=== PATIENT | male | born 1955 | race Caucasian/White ===

== ENCOUNTER 2024-03-08 01:25 | Emergency (ER) | payer OTHER ==
[2024-03-08] MEDS ORDERED: MORPHINE 4 MG/ML SYR ONE ×2 (02:11→02:59)
[2024-03-08] MEDS ORDERED: ONDANSETRON 4 MG/2 ML VIAL ONE ×2 (02:11→02:41)
[2024-03-08] MEDS ORDERED: NA CHLORIDE 0.9% 1,000 ML ONE (02:11)
[2024-03-08] MEDS ORDERED: TAMSULOSIN 0.4 MG SR CAP ONE (02:41)
[2024-03-08 02:53] LABS: Absolute Eosinophils 0.1 K/uL (0-0.5); Absolute Lymphocytes (CBC) 1.5 K/uL (0.7-4.9); Absolute Monocytes 0.6 K/uL (0.1-1.3); Absolute Neutrophil 7.3 K/uL (1.8-8.0); Basophils % 0.5 % (0-1.3); Eosinophils % 1.3 % (0-4.4); Hematocrit 43.2 % (39.6-49.0); Hemoglobin 14.3 g/dL (13.6-17.9); Lymphocytes % 15.7 % (15.3-44.8); MCH 29.4 pg (27.0-35.0); MPV 8.3 fL (7.6-11.3); Monocytes % 6.6 % (3.3-12.3); Neutrophils % 75.9 % (41.7-73.7); Platelets 293 thou/uL (152-406); RBC Red Blood Cell Count 4.86 M/uL (4.33-5.43); Red Cell Distribution Width 14.3 % (12.1-15.2)
[2024-03-08] MEDS ORDERED: KETOROLAC 30 MG/ML INJ ONE (02:59)
[2024-03-08 03:02] LABS: Albumin 4.2 g/dL (3.4-5.0); Albumin/Globulin Ratio 1.3 (1.1-1.8); Anion Gap 9.7 mEq/L (5.0-15.0); Bilirubin Total 0.5 mg/dL (0.2-1.0); Globulin 3.2 g/dL (2.3-3.5); Potassium 3.7 mEq/L (3.5-5.1); Protein, Total 7.4 g/dL (6.4-8.2)
[2024-03-08 04:59] LABS: Renal Epithelial <5 /HPF (None Seen); Sqamous Epithelial None Seen /HPF (None Seen); Urine Bacteria None Seen /HPF (<20); Urine Bilirubin NEGATIVE (Negative); Urine Blood 3+ (OVER) (Negative); Urine Clarity Extremely Turbid (Clear); Urine Color Yellow (Yellow); Urine Culture Reflex Order NOT NEEDED; Urine Glucose NEGATIVE (Negative); Urine Ketones TRACE (Negative); Urine Microscopic Reflex YN ORDER UMIC; Urine Mucus Slight /HPF (None Seen); Urine Nitrite NEGATIVE (Negative); Urine Protein TRACE (Negative); Urine RBC >50 /HPF (None Seen); Urine Urobilinogen Normal (Normal); Urine WBC <5 /HPF (<5); Urine pH 5.5 (5.0-7.0)
--- NOTE | 2024-03-08 05:10 | RAD REPORT ---
EXAM: CT Abdomen and Pelvis Without Intravenous Contrast CLINICAL HISTORY: The patient is 68 years old and is Male; Abdominal pain. TECHNIQUE: Axial computed tomography images of the abdomen and pelvis without intravenous contrast. Sagittal and coronal reformatted images were created and reviewed. This CT exam was performed using one or more of the following dose reduction techniques: automated exposure control, adjustmen t of the mA and/or kV according to patient size, and/or use of iterative reconstruction technique. COMPARISON: CT Abdomen pelvis 12/11/2015. FINDINGS: Lung bases: Unremarkable. No mass. No consolidation. ABDOMEN: Liver: Unremarkable. Gallbladder and bile ducts: Unremarkable. No calcified stones. No ductal dilation. Pancreas: Unremarkable. No ductal dilation. Spleen: Unremarkable. No splenomegaly. Adrenals: Unremarkable. No mass. Kidneys and ureters: Right hydronephrosis and perinephric stranding with a 3.7 mm calculus in the proximal ureter. Punctate right nephrolithiasis. No left hydronephrosis or left nephrolithiasis. Stomach and bowel: No bowel dilatation or obstruction. No bowel wall thickening. PELVIS: Appendix: The visualized appendix is normal. No pericecal inflammation to suggest acute appendici tis. Bladder: Unremarkable. No stones. Reproductive: Mild prostate gland enlargement. Right hydrocele. ABDOMEN and PELVIS: Intraperitoneal space: Unremarkable. No free air. No significant fluid collection. Bones/joints: Degenerative changes in the lower lumbar spine. No acute fracture visualized. No dislocation. Soft tissues: Unremarkable. Vasculature: Unremarkable. No abdominal aortic aneurysm. Lymph nodes: No pathologically enlarged lymph nodes. IMPRESSION: 1. Right hydronephrosis and perinephric stranding with a 3.7 mm calculus in the proximal ureter. 2. Punctate right nephrolithiasis. Electronically signed by: Sheeba Davenport MD 03/08/2024 04:35 AM [facility] [place] Due to temporary technical issues with the [employer] reporting system, reports are being castro d by the in-house radiologist without review as a courtesy to ensure prompt reporting the interpreting radiologist is fully responsible for the content of the report. Transcribed Date/Time: 03/08/2024 5:10 AM
--- NOTE | 2024-03-08 06:22 | ER ---
Nurse's Notes [facility] Name: Zhao Anderson Age: 68 yrs Sex: Male : 1955 Arrival Date: 03/08/2024 Time: 01:25 Bed 8 Private MD: Diagnosis: Acute right ureteral stone, acute kidney stone Presentation: 03/08 01:45 Chief complaint: Patient states: Pain to right lower abdomen and right lower back. vc1 Coronavirus screen: Client denies travel out of the [place] in the last 14 days. At this time, the client does not indicate any symptoms associated with coronavirus-19. Ebola Screen: Patient negative for fever greater than or equal to 101.5 degrees Fahrenheit, and additional compatible Ebola Virus Disease symptoms Patient denies exposure to infectious person. Patient denies travel to an Ebola-affected area in the 21 days before illness onset. No symptoms or risks identified at this time. Initial Sepsis Screen: Does the patient meet any 2 criteria? No. Patient's initial sepsis screen is negative. Does the patient have a suspected source of infection? No. Patient's initial sepsis screen is negative. Risk Assessment: Do you want to hurt yourself or someone else? Patient reports no desire to harm self or others. Note history of kidney stones. Onset of symptoms was March 08, 2024. 01:45 Method Of Arrival: Ambulatory vc1 01:45 Acuity: ALONDRA 3 vc1 Triage Assessment: 01:53 General: Appears in no apparent distress. uncomfortable, Behavior is calm, cooperative, vc1 appropriate for age. Pain: Complains of pain in right low back and right lower quadrant Pain does not radiate. Pain currently is 8 out of 10 on a pain scale. Quality of pain is described as sharp. EENT: No deficits noted. No signs and/or symptoms were reported regarding the EENT system. Neuro: Level of Consciousness is awake, alert, obeys commands, Oriented to person, place, time, situation, Appropriate for age. Respiratory: Airway is patent Respiratory effort is even, unlabored, Respiratory pattern is regular, symmetrical. GI: Reports lower abdominal pain, nausea, vomiting. : Reports inability to void. Derm: Skin is intact, is healthy with good turgor, Skin is dry, Skin is normal, Skin temperature is warm. Musculoskeletal: Circulation, motion, and sensation intact. Range of motion: intact in all extremities. Historical: - Allergies: 01:47 PENICILLINS; vc1 - Home Meds: 01:47 pantoprazole oral every other day [Active]; meloxicam oral [Active]; shot for vc1 cholesterol [Active]; - PMHx: 01:47 Hyperlipidemia; vc1 - PSHx: 01:47 None; vc1 - Immunization history:: Client reports having NOT received the Covid vaccine. - Infectious Disease History:: Denies. - Social history:: Smoking status: Patient denies any tobacco usage or history of. - Family history:: not pertinent. Screenin:53 Abuse screen: Denies threats or abuse. Nutritional screening: No deficits noted. vc1 Tuberculosis screening: No symptoms or risk factors identified. 01:59 [facility] ED Fall Risk Assessment (Adult) History of falling in the last 3 months, bm8 including since admission No falls in past 3 months (0 pts) Confusion or Disorientation No (0 pts) Intoxicated or Sedated No (0 pts) Impaired Gait No (0 pts) Mobility Assist Device Used No (0 pt) Altered Elimination No (0 pt) Score/Fall Risk Level 0 - 2 = Low Risk Oriented to surroundings, Maintained a safe environment, Educated pt \T\ family on fall prevention, incl call for assistance when getting out of bed, Assessed \T\ reinforced patient's understanding of fall precautions, Hourly rounding (assess needs \T\ fall precautionary measures) done, Used ambulatory aids as needed (educated on \T\ assisted with), Used gait belt as appropriate. Assessment: 01:56 Reassessment: Patient and/or family updated on plan of care and expected duration. Pain bm8 level reassessed. Patient is alert, oriented x 3, equal unlabored respirations, skin warm/dry/pink. General: Appears distressed, uncomfortable, Behavior is calm, cooperative, appropriate for age. Pain: Complains of pain in right lower quadrant and right low back Pain currently is 8 out of 10 on a pain scale. Quality of pain is described as aching, crampy, sharp. Neuro: No deficits noted. Level of Consciousness is awake, alert, obeys commands, Oriented to person, place, time, situation, Appropriate for age. Cardiovascular: Denies chest pain, Heart tones S1 S2 present Capillary refill < 3 seconds in bilateral fingers. Respiratory: Airway is patent Respiratory effort is even, unlabored, Respiratory pattern is regular, symmetrical, Breath sounds are clear bilaterally. GI: Abdomen is flat, non-distended, Bowel sounds present X 4 quads. Reports lower abdominal pain, nausea, Pain is 8 out of 10 on a pain scale. vomiting. : Reports burning with urination, inability to void. : Reports pain in right flank(s), lower quadrant(s) in lower back since 1300 today. EENT: No signs and/or symptoms were reported regarding the EENT system. Derm: No signs and/or symptoms reported regarding the dermatologic system. Musculoskeletal: No signs and/or symptoms reported regarding the musculoskeletal system. 03:04 Reassessment: Patient appears in no apparent distress at this time. Patient and/or bm8 family updated on plan of care and expected duration. Pain level reassessed. Patient is alert, oriented x 3, equal unlabored respirations, skin warm/dry/pink. Patient states symptoms have improved. Pain: Complains of pain in right lower quadrant and right low back Pain currently is 6 out of 10 on a pain scale. Neuro: No deficits noted. Cardiovascular: No deficits noted. Respiratory: Airway is patent Respiratory effort is even, unlabored, shallow, Respiratory pattern is regular, symmetrical, pt placed on NC for O2 support. 04:40 Reassessment: Patient appears in no apparent distress at this time. Patient and/or bm8 family updated on plan of care and expected duration. Pain level reassessed. Patient is alert, oriented x 3, equal unlabored respirations, skin warm/dry/pink. Patient denies pain at this time. Patient states feeling better. Patient states symptoms have improved. 06:20 Reassessment: Patient appears in no apparent distress at this time. Patient and/or bm8 family updated on plan of care and expected duration. Pain level reassessed. Patient is alert, oriented x 3, equal unlabored respirations, skin warm/dry/pink. Patient denies pain at this time. Patient states feeling better. Patient states symptoms have improved. Vital Signs: 01:45 BP 157 / 88; Pulse 64; Resp 16; Temp 97.5; Pulse Ox 100% ; Weight 86.18 kg; Height 6 vc1 ft. 2 in. ; Pain 8/10; 01:56 BP 157 / 83; Pulse 53; Resp 18; Temp 97.8; Pulse Ox 97% ; Pain 8/10; bm8 03:04 BP 146 / 85; Pulse 57; Resp 18; Temp 97.8; Pulse Ox 93% ; Pain 6/10; bm8 04:40 BP 010 / 83; Pulse 63; Resp 17; Temp 97.8; Pulse Ox 98% ; Pain 0/10; bm8 06:20 BP 132 / 77; Pulse 58; Resp 18; Temp 97.8; Pulse Ox 97% ; Pain 0/10; bm8 01:45 Body Mass Index 24.39 (86.18 kg, 187.96 cm) vc1 01:45 Pain Scale: Adult vc1 01:56 Pain Scale: Adult bm8 03:04 Pain Scale: Adult bm8 04:40 Pain Scale: Adult bm8 06:20 Pain Scale: Adult bm8 Kirk Coma Score: 01:56 Eye Response: spontaneous(4). Motor Response: obeys commands(6). Verbal Response: bm8 oriented(5). Total: 15. 03:04 Eye Response: spontaneous(4). Motor Response: obeys commands(6). Verbal Response: bm8 oriented(5). Total: 15. 04:40 Eye Response: spontaneous(4). Motor Response: obeys commands(6). Verbal Response: bm8 oriented(5). Total: 15. 06:20 Eye Response: spontaneous(4). Motor Response: obeys commands(6). Verbal Response: bm8 oriented(5). Total: 15. 14 01:39 Eye Response: spontaneous(4). Motor Response: obeys commands(6). Verbal Response: sp4 oriented(5). Total: 15. ED Course: 03/08 01:29 Patient arrived in ED. gm2 01:39 Dylan Persaud MD is Attending Physician. al5 01:47 Triage completed. vc1 01:52 Arm band placed on left wrist. vc1 01:56 Jagdish Wade, SHERRY is Primary Nurse. bm8 01:59 Patient has correct armband on for positive identification. Placed in gown. Bed in low bm8 position. Call light in reach. Side rails up X 1. Adult w/ patient. Client placed on continuous cardiac and pulse oximetry monitoring. NIBP monitoring applied. Pulse ox on. NIBP on. Door closed. Noise minimized. Warm blanket given. Pillow given. Verbal reassurance given. Head of bed elevated. 01:59 No provider procedures requiring assistance completed. Initial lab(s) drawn, by me, bmInes sent to lab. Inserted saline lock: 20 gauge in right antecubital area, using aseptic technique. Blood collected. Flushed with 10 mL NS. Patient maintains SpO2 saturation greater than 95% on room air. 02:54 CT Abd/Pelvis - Without Contrast In Process Unspecified. EDMS 03:04 Oxygen administration via nasal cannula \T\ 3L/min Response to oxygen therapy: symptoms bm8 improved. 04:40 Urine collected: clean catch specimen, cloudy, arian colored. bm8 06:20 Henrry Celaya MD is Referral Physician. sp4 06:20 Provided Education on: post er care. bm8 06:20 IV discontinued, intact, bleeding controlled, No redness/swelling at site. Pressure bm8 dressing applied. Administered Medications: 02:20 Drug: morphine IVP or IV 8 mg IVP once over 4 mins Route: IVP; Infused Over: 4 mins; bm8 Site: right antecubital; 03:03 Follow up: Response: No adverse reaction bm8 02:20 Drug: Ondansetron IVP 8 mg IVP once; over 2 minutes Route: IVP; Site: right antecubital;bm8 03:03 Follow up: Response: No adverse reaction bm8 02:20 Drug: NS 0.9% IV 1000 ml IV at 1 bolus Per protocol; to be given as a bolus over 60 bm8 minutes Route: IV; Rate: 1 bolus; Site: right antecubital; 04:42 Follow up: Response: No adverse reaction; IV Status: Completed infusion; IV Intake: bm8 1000ml 02:48 Drug: Flomax PO 0.8 mg PO once Route: PO; bm8 03:03 Follow up: Response: No adverse reaction bm8 03:03 Drug: morphine IVP or IV 4 mg IVP once over 4 mins Route: IVP; Infused Over: 4 mins; bm8 Site: right antecubital; 03:03 Follow up: Response: No adverse reaction bm8 03:03 Drug: Ketorolac IVP 30 mg IVP once Route: IVP; Site: right antecubital; bm8 03:04 Follow up: Response: No adverse reaction bm8 06:27 Drug: Lyon PO 10 mg-325 mg 1 tabs PO once Route: PO; bm8 06:27 Follow up: Response: No adverse reaction; Medication Administered at Departure bm8 Medication: 01:59 VIS not applicable for this client. bm8 Intake: 04:42 IV: 1000ml; Total: 1000ml. bm8 Outcome: 06:20 Discharged to home ambulatory, bm8 06:20 Condition: stable 06:20 Discharge instructions given to patient, family, Instructed on discharge instructions, follow up and referral plans. no drinking with medication, no driving heavy equipment, medication usage, safety practices, Demonstrated understanding of instructions, follow-up care, medications, Prescriptions given X 06:21 Discharge ordered by . sp4 06:27 Prescriptions given X 3, bm8 06:32 Patient left the ED. bm8 Signatures: Dispatcher [employer] EDMS Aleyda Slater RN RN vc1 Dylan Persaud MD MD sp4 Theresa Berumen 2 Jagdish Wade RN RN bm8 Mari Richardson RN RN al5 Corrections: (The following items were deleted from the chart) 03:12 03:04 Respiratory: Airway is patent Respiratory effort is even, unlabored, shallow, bm8 Respiratory pattern is regular, symmetrical, pt placed on 2L nc for O2 support. bm8
--- NOTE | 2024-03-08 06:22 | EDPHYS ---
Physician Documentation [facility] Name: Zhao Anderson Age: 68 yrs Sex: Male : 1955 Arrival Date: 03/08/2024 Time: 01:25 Bed 8 Private MD: ED Physician Dylan Persaud HPI: 03/08 02:51 This 68 yrs old Male presents to ER via Ambulatory with complaints of sp4 Nausea/Vomiting, Low Back Pain, Abdominal Pain, Weakness, Possible Kidney Stone. 03/09 01:39 68-year-old male presents with complaint of right flank pain similar to prior kidney sp4 stones.. Historical: - Allergies: 03/08 01:47 PENICILLINS; vc1 - Home Meds: 01:47 pantoprazole oral every other day [Active]; meloxicam oral [Active]; shot for vc1 cholesterol [Active]; - PMHx: 01:47 Hyperlipidemia; vc1 - PSHx: 01:47 None; vc1 - Immunization history:: Client reports having NOT received the Covid vaccine. - Infectious Disease History:: Denies. - Social history:: Smoking status: Patient denies any tobacco usage or history of. - Family history:: not pertinent. ROS: 03/09 01:39 Constitutional: Negative for fever, chills, and weight loss, positive right flank sp4 pain, positive vomiting All other systems are negative, Exam: 01:39 Constitutional: This is a well developed, well nourished patient who is awake, alert, sp4 and in no acute distress. Head/Face: Normocephalic, atraumatic. Eyes: Pupils equal round and reactive to light, extra-ocular motions intact. Lids and lashes normal. Conjunctiva and sclera are not injected. Cornea within normal limits. Periorbital areas with no swelling, redness, or edema. ENT: Nares patent. No nasal discharge, no septal abnormalities noted. Tympanic membranes are normal and external auditory canals are clear. Oropharynx with no redness, swelling, or masses, exudates, or evidence of obstruction, uvula midline. Mucous membranes moist. Neck: Trachea midline, no thyromegaly or masses palpated, and no cervical lymphadenopathy. Supple, full range of motion without nuchal rigidity, or vertebral point tenderness. Chest/axilla: Normal chest wall appearance and motion. Nontender with no deformity. No lesions are appreciated. Cardiovascular: Regular rate and rhythm with a normal S1 and S2. No gallops, murmurs, or rubs. Normal PMI, no JVD. No pulse deficits. Respiratory: Lungs have equal breath sounds bilaterally, clear to auscultation and percussion. No rales, rhonchi or wheezes noted. No increased work of breathing, no retractions or nasal flaring. Abdomen/GI: Soft, with normal bowel sounds. No distension or tympany. No guarding or rebound. No evidence of tenderness throughout. Back: No spinal tenderness. No costovertebral tenderness. Skin: Warm, dry with normal turgor. Normal color with no rashes, no lesions, and no evidence of cellulitis. MS/ Extremity: Pulses equal, no cyanosis. Neurovascular intact. Full, normal range of motion. Neuro: Awake and alert, GCS 15, oriented to person, place, time, and situation. Cranial nerves II-XII grossly intact. Motor strength 5/5 in all extremities. Sensory grossly intact. Psych: Awake, alert, with orientation to person, place and time. Behavior, mood, and affect are within normal limits Vital Signs: 03/08 01:45 BP 157 / 88; Pulse 64; Resp 16; Temp 97.5; Pulse Ox 100% ; Weight 86.18 kg; Height 6 vc1 ft. 2 in. ; Pain 8/10; 01:56 BP 157 / 83; Pulse 53; Resp 18; Temp 97.8; Pulse Ox 97% ; Pain 8/10; bm8 03:04 BP 146 / 85; Pulse 57; Resp 18; Temp 97.8; Pulse Ox 93% ; Pain 6/10; bm8 04:40 BP 010 / 83; Pulse 63; Resp 17; Temp 97.8; Pulse Ox 98% ; Pain 0/10; bm8 06:20 BP 132 / 77; Pulse 58; Resp 18; Temp 97.8; Pulse Ox 97% ; Pain 0/10; bm8 01:45 Body Mass Index 24.39 (86.18 kg, 187.96 cm) vc1 01:45 Pain Scale: Adult vc1 01:56 Pain Scale: Adult bm8 03:04 Pain Scale: Adult bm8 04:40 Pain Scale: Adult bm8 06:20 Pain Scale: Adult bm8 [place] Coma Score: 01:56 Eye Response: spontaneous(4). Motor Response: obeys commands(6). Verbal Response: bm8 oriented(5). Total: 15. 03:04 Eye Response: spontaneous(4). Motor Response: obeys commands(6). Verbal Response: bm8 oriented(5). Total: 15. 04:40 Eye Response: spontaneous(4). Motor Response: obeys commands(6). Verbal Response: bm8 oriented(5). Total: 15. 06:20 Eye Response: spontaneous(4). Motor Response: obeys commands(6). Verbal Response: bm8 oriented(5). Total: 15. 03/09 01:39 Eye Response: spontaneous(4). Motor Response: obeys commands(6). Verbal Response: sp4 oriented(5). Total: 15. MDM: 03/08 02:04 Medical Screening Exam initiated sp4 04:41 ED course: EXAM: CTAbdomen and Pelvis Without Intravenous Contrast CLINICAL HISTORY: sp4 The patient is 68 years old and is Male; Abdominal pain. TECHNIQUE: Axial computed tomography images of the abdomen and pelvis without intravenous contrast. Sagittal and coronal reformatted images were created and reviewed. This CT exam was performed using one or more of the following dose reduction techniques: automated exposure control, adjustment of the mA and/or kV according to patient size, and/or use of iterative reconstruction technique. COMPARISON: CTAbdomen pelvis 12/11/2015. FINDINGS: Lung bases: Unremarkable. No mass. No consolidation. ABDOMEN: Liver: Unremarkable. Gallbladder and bile ducts: Unremarkable. No calcified stones. No ductal dilation. Pancreas: Unremarkable. No ductal dilation. Spleen: Unremarkable. No splenomegaly. Adrenals: Unremarkable. No mass. Kidneys and ureters: Right hydronephrosis and perinephric stranding with a 3.7 mm calculus in the proximal ureter. Punctate right nephrolithiasis. No left hydronephrosis or left nephrolithiasis. Stomach and bowel: No bowel dilatation or obstruction. No bowel wall thickening. PELVIS: Appendix: The visualized appendix is normal. No pericecal inflammation to suggest acute appendicitis. Bladder: Unremarkable. No stones. Reproductive: Mild prostate gland enlargement. Right hydrocele. ABDOMEN and PELVIS: Intraperitoneal space: Unremarkable. No free air. No significant fluid collection. Bones/joints: Degenerative changes in the lower lumbar spine. No acute fracture visualized. No dislocation. Soft tissues: Unremarkable. Vasculature: Unremarkable. No abdominal aortic aneurysm. Lymph nodes: No pathologically enlarged lymph nodes. IMPRESSION: 1. Right hydronephrosis and perinephric stranding with a 3.7 mm calculus in the proximal ureter. 2. Punctate right nephrolithiasis. Electronically signed by: Shebea Davenport MD 03/08/2024 04:35 AM. 06:07 ED course: EXAM: CTAbdomen and Pelvis Without Intravenous Contrast CLINICAL HISTORY: sp4 The patient is 68 years old and is Male; Abdominal pain. TECHNIQUE: Axial computed tomography images of the abdomen and pelvis without intravenous contrast. Sagittal and coronal reformatted images were created and reviewed. This CT exam was performed using one or more of the following dose reduction techniques: automated exposure control, adjustment of the mA and/or kV according to patient size, and/or use of iterative reconstruction technique. COMPARISON: CTAbdomen pelvis 12/11/2015. FINDINGS: Lung bases: Unremarkable. No mass. No consolidation. ABDOMEN: Liver: Unremarkable. Gallbladder and bile ducts: Unremarkable. No calcified stones. No ductal dilation. Pancreas: Unremarkable. No ductal dilation. Spleen: Unremarkable. No splenomegaly. Adrenals: Unremarkable. No mass. Kidneys and ureters: Right hydronephrosis and perinephric stranding with a 3.7 mm calculus in the proximal ureter. Punctate right nephrolithiasis. No left hydronephrosis or left nephrolithiasis. Stomach and bowel: No bowel dilatation or obstruction. No bowel wall thickening. PELVIS: Appendix: The visualized appendix is normal. No pericecal inflammation to suggest acute appendicitis. Bladder: Unremarkable. No stones. Reproductive: Mild prostate gland enlargement. Right hydrocele. ABDOMEN and PELVIS: Intraperitoneal space: Unremarkable. No free air. No significant fluid collection. Bones/joints: Degenerative changes in the lower lumbar spine. No acute fracture visualized. No dislocation. Soft tissues: Unremarkable. Vasculature: Unremarkable. No abdominal aortic aneurysm. Lymph nodes: No pathologically enlarged lymph nodes. IMPRESSION: 1. Right hydronephrosis and perinephric stranding with a 3.7 mm calculus in the proximal ureter. 2. Punctate right nephrolithiasis. Electronically signed by: Sheeba Davenport MD . 03/09 01:40 Differential diagnosis: Nonspecific abd pain, gastritis, diverticulitis, viral sp4 gastroenteritis, gastroenteritis. Data reviewed: vital signs, nurses notes, lab test result(s), radiologic studies, CT scan. Consideration of Admission/Observation Escalation of care including admission/observation considered. ED course: Patient's pain was controlled. Patient stable for discharge home advised follow-up with urology.. 03/08 02:05 Order name: CBC with Diff; Complete Time: 04:40 sp4 03/08 02:05 Order name: CMP; Complete Time: 04:40 sp4 03/08 02:05 Order name: Lipase; Complete Time: 04:40 sp4 03/08 02:05 Order name: Urinalysis w/ reflexes; Complete Time: 06:07 sp4 03/08 02:05 Order name: CT Abd/Pelvis - Without Contrast sp4 03/08 02:05 Order name: IV Saline Lock; Complete Time: 02:20 sp4 03/08 02:05 Order name: Labs collected and sent; Complete Time: 02:20 sp4 Administered Medications: 03/08 02:20 Drug: morphine IVP or IV 8 mg IVP once over 4 mins Route: IVP; Infused Over: 4 mins; bm8 Site: right antecubital; 03:03 Follow up: Response: No adverse reaction bm8 02:20 Drug: Ondansetron IVP 8 mg IVP once; over 2 minutes Route: IVP; Site: right antecubital;bm8 03:03 Follow up: Response: No adverse reaction bm8 02:20 Drug: NS 0.9% IV 1000 ml IV at 1 bolus Per protocol; to be given as a bolus over 60 bm8 minutes Route: IV; Rate: 1 bolus; Site: right antecubital; 04:42 Follow up: Response: No adverse reaction; IV Status: Completed infusion; IV Intake: bm8 1000ml 02:48 Drug: Flomax PO 0.8 mg PO once Route: PO; bm8 03:03 Follow up: Response: No adverse reaction bm8 03:03 Drug: morphine IVP or IV 4 mg IVP once over 4 mins Route: IVP; Infused Over: 4 mins; bm8 Site: right antecubital; 03:03 Follow up: Response: No adverse reaction bm8 03:03 Drug: Ketorolac IVP 30 mg IVP once Route: IVP; Site: right antecubital; bm8 03:04 Follow up: Response: No adverse reaction bm8 06:27 Drug: [place] PO 10 mg-325 mg 1 tabs PO once Route: PO; bm8 06:27 Follow up: Response: No adverse reaction; Medication Administered at Departure bm8 Disposition Summary: 03/08/24 06:21 Discharge Ordered Notes: Location: Home sp4 Problem: new sp4 Symptoms: have improved sp4 Condition: Stable sp4 Diagnosis - Acute right ureteral stone, acute kidney stone sp4 Followup: sp4 - With: Henrry Celaya MD - When: 7 - 10 days - Reason: Recheck today's complaints Discharge Instructions: - Discharge Summary Sheet sp4 - Kidney Stones, [id number] sp4 Forms: - Patient Portal Instructions sp4 Prescriptions: - Flomax 0.4 mg Oral capsule - take 1 capsule ORAL route every morning for 30 days; 30 capsule; Refills: 0, sp4 Product Selection Permitted - acetaminophen-codeine 300-60 mg Oral tablet - take 1 tablet ORAL route every 8 hours PRN pain; 20 tablet; Refills: 0, Product sp4 Selection Permitted - ondansetron 8 mg Oral Tablet,disintegrating - take 1 tablet ORAL route every 8 hours PRN nausea; 30 tablet; Refills: 0, sp4 Product Selection Permitted Signatures: Dispatcher [employer] EDAleyda Khan, RN RN vc1 Dylan Persaud MD MD sp4 Jagdish Wade RN RN bm8 Corrections: (The following items were deleted from the chart) 02:07 02:07 Abdomen Pelvis Wo [id number] ordered. EDMS EDMS
[2024-03-08] MEDS ORDERED: HYDROCODONE/APAP 10/325 TAB ONE (06:24)
[2024-03-08 06:47] VITALS: TEMP 97.8
[2024-03-08 07:00] VITALS: BP 132/77; O2SAT 97
== END 2024-03-08 06:32 | disposition home or self-care (01) ==
LOC: ER 01:25
DX: N20.2 Calculus of kidney with calculus of ureter (principal); E78.5 Hyperlipidemia, unspecified
CPT/HCPCS: 85025; 81001; 36415; 83690; 80053; 74176; J2405 ×2; J7030